=== PATIENT | male | born 1995 | race Caucasian/White ===

== ENCOUNTER 2021-08-08 02:44 | Emergency (ER) | payer SELFPAY ==
[~2021-08-08] VITALS: Ht 172.7 cm; Wt 72.6 kg
--- NOTE | 2021-08-08 02:44 | NUR ---
PT BIB [facility], PREBOOK. TAKEN TO CHAIR
[2021-08-08 02:46] VITALS: BP 135/64
--- NOTE | 2021-08-08 02:57 | NUR ---
Dr. Nelson examining patient.
[2021-08-08 03:22] VITALS: BP 135/64
--- NOTE | 2021-08-08 03:30 | NUR ---
PATIENT BIB [facility]. PATIENT EXAMINED BY DR. HAMILTON. PATIENT MEDICALLY CLEARED AND RELEASED IN CUSTODY IN STABLE CONDITION. ORIGINAL PRE-BOOK FORM GIVEN TO OFFICER TIMBO.
== END 2021-08-08 03:30 ==
LOC: MED 02:44
DX: F10.129 Alcohol abuse with intoxication, unspecified (principal); Z02.89 Encounter for other administrative examinations; V43.52XA Car driver injured in collision with other type car in traffic accident, initial encounter; Y93.89 Activity, other specified; Y92.411 Interstate highway as the place of occurrence of the external cause; Y99.8 Other external cause status
CPT/HCPCS: 99283